=== PATIENT | female | born 1995 | race Caucasian/White ===

== ENCOUNTER 2016-10-09 16:32 | Emergency (ER) | payer OTHER ==
[~2016-10-09 16:32] MED LIST: AMOX875T PO; FLUT1SPR9 EACH NARE
[2016-10-09 16:35] VITALS: BP 125/78; PULSE 90; RESP 16; TEMP 97.8; O2SAT 97
--- NOTE | 2016-10-09 18:03 | PD ---
HPI Chief Complaint: ENT Complaint Time Seen by Provider: 17:56 Travel History International Travel<30 days: No Contact w/Intl Traveler<30days: No Traveled to known affect area: No History of Present Illness HPI 21-year-old female presents to the emergency department for evaluation of sore throat that started this morning. She reports a history of strep throat, last time being approximately 8 months ago. She denies any fevers or chills. No cough or congestion. She has no chronic medical problems and takes no prescribed medications. She denies any chance of . She has no other complaints. PFSH Past Medical History ADHD: No Anemia: Yes Autoimmune Disease: No Anxiety: No Depression: Yes Heart Rhythm Problems: Yes Cancer: No Cardiovascular Problems: No Chest Pain: Yes Developmental Delay: No Diabetes: No Diminished Hearing: No Gastrointestinal Disorders: Yes (occassional constipation) Genitourinary: No Neurologic: No Psychiatric: No Reproductive: No Respiratory: Yes (ASTHMA) Immunizations Current: Yes Migraines: Yes Seizures: No Thyroid Disease: No Ulcer: No PNEUMOCCOCAL Vaccine (Year): 2 ?: Not Past Surgical History Other Surgery: No Social History Alcohol Use: No Tobacco Use: No Substance Use: No Allergies-Medications (Allergen,Severity, Reaction): Coded Allergies: Peanut Oil (Verified Allergy, Severe, Swelling, 10/09/16) Reported Meds & Prescriptions Reported Meds & Active Scripts Active No Active Prescriptions or Reported Medications Review of Systems Except as stated in HPI: all other systems reviewed are Neg Physical Exam Narrative GENERAL: Well-developed well-nourished female patient, Ambulatory. Afebrile. SKIN: Warm and dry. HEAD: Normocephalic. Atraumatic. ENT: Mucosa pink and moist. Bilateral tonsils are 2+ with erythema, but no exudates. No uvular edema. No uvular, palatal, or tonsillar deviation. Airway patent. Nasal turbinates appear normal without nasal blood, purulent drainage or septal hematoma. Bilateral tympanic membranes are clear without erythema or perforation. EYES: No scleral icterus. No injection or drainage. NECK: Supple, trachea midline. No JVD or lymphadenopathy. CARDIOVASCULAR: Regular rate and rhythm without murmurs, gallops, or rubs. RESPIRATORY: Breath sounds equal bilaterally. No accessory muscle use. Lungs sounds are clear to auscultation. GASTROINTESTINAL: Abdomen soft, non-tender, nondistended. MUSCULOSKELETAL: No cyanosis, or edema. BACK: Nontender without obvious deformity. No CVA tenderness. Data Data Last Documented VS Vital Signs Date Time Temp Pulse Resp B/P Pulse Ox O2 Delivery O2 Flow Rate FiO2 10/09/16 16:35 97.8 90 16 125/78 97 Room Air Orders Group A Rapid Strep Screen (10/09/16 17:55) Strep Culture (Group A) (10/09/16 18:10) MDM Medical Decision Making Medical Screen Exam Complete: Yes Emergency Medical Condition: Yes Medical Record Reviewed: Yes Differential Diagnosis strep pharyngitis versus viral pharyngitis versus URI Narrative Course 21-year-old female presents to the emergency department for evaluation of sore throat that started today. Strep swab is ordered and pending. Strep swab is negative. Physical exam is consistent with viral pharyngitis. She is instructed to do warm saltwater gargles, Tylenol/Motrin [id number] as needed. She is to follow-up with her primary care physician return for any acute worsening of symptoms. Patient verbalizes agreement and understanding. Diagnosis Primary Impression: Viral pharyngitis Referrals: Primary Care Physician call for appointment Patient Instructions: General Instructions, Pharyngitis (ED) Additional Instructions: Warm salt water gargles. Tylenol/ibuprofen for pain. Follow-up with your primary care physician. Return to the emergency department for any acute worsening of symptoms. Med/Other Pt SpecificInfo: No Change to Meds Scripts No Active Prescriptions or Reported Meds Disposition: 01 DISCHARGE HOME Condition: Stable MarvinGala Oct 09, 2016 18:02
== END 2016-10-09 19:21 | disposition home or self-care (01) ==
LOC: NEPB 16:32
DX: J02.9 Acute pharyngitis, unspecified (principal)
CPT/HCPCS: 87081; 87880; 99283

== ENCOUNTER 2016-12-08 18:11 | Emergency (ER) | payer OTHER ==
[2016-12-08 18:25] VITALS: BP 144/64; PULSE 88; RESP 18; TEMP 98.9; O2SAT 100
--- NOTE | 2016-12-08 19:39 | PD ---
HPI Chief Complaint: Psychiatric Symptoms Time Seen by Provider: 19:35 Travel History International Travel<30 days: No Contact w/Intl Traveler<30days: No Traveled to known affect area: No History of Present Illness HPI Patient is a 21-year-old female brought into the emergency department for a psychiatric evaluation under Hernandez act for making suicidal ideations. Patient states that she was in an argument with her boyfriend when she began to pound her right fist on the steering wheel. A air support control officer asked her if she felt suicidal and she stated that she did. Patient states that she has a history of emotional outbursts. She denies any formal diagnosis of mental health issues. She does report a previous suicide attempt at age 17 when she overdosed on unknown pills. Her last menstrual cycle was 2 weeks ago. She does report pain in the lateral aspect of her right hand, she states the pain is a 4 out of 10. She denies any other significant past medical history, tobacco use, illicit drug use. She does endorse occasional alcohol intake. PFSH Past Medical History ADHD: No Anemia: Yes Asthma: Yes Autoimmune Disease: No Anxiety: No Depression: Yes Heart Rhythm Problems: Yes Cancer: No Cardiovascular Problems: No Chest Pain: Yes Developmental Delay: No Diabetes: No Diminished Hearing: No Genitourinary: No Neurologic: No Psychiatric: No Reproductive: No Immunizations Current: Yes Migraines: Yes Seizures: No Thyroid Disease: No Ulcer: No PNEUMOCCOCAL Vaccine (Year): 2 ?: Not LMP: 11/23/16 Past Surgical History Surgical History: No Previous Surgery Other Surgery: No Social History Alcohol Use: Yes (occasional) Tobacco Use: No Substance Use: No Allergies-Medications (Allergen,Severity, Reaction): Coded Allergies: Peanut Oil (Verified Allergy, Severe, Swelling, 10/09/16) Reported Meds & Prescriptions Reported Meds & Active Scripts Active Cephalexin 500 Mg Cap 500 Mg PO Q8H Review of Systems Except as stated in HPI: all other systems reviewed are Neg Musculoskeletal: Positive: Pain Psychiatric: Positive: Suicidal Ideations, Mood Disorder Physical Exam Narrative GENERAL: Well-developed, well-nourished, alert female. Resting comfortably in no acute distress. SKIN: Focused skin assessment warm/dry. HEAD: Atraumatic. Normocephalic. EYES: Pupils equal and round. No scleral icterus. No injection or drainage. ENT: No nasal bleeding or discharge. Mucous membranes pink and moist. NECK: Trachea midline. No JVD. CARDIOVASCULAR: Regular rate and rhythm. No murmur appreciated. RESPIRATORY: No accessory muscle use. Clear to auscultation. Breath sounds equal bilaterally. GASTROINTESTINAL: Abdomen soft, non-tender, nondistended. Hepatic and splenic margins not palpable. MUSCULOSKELETAL: No obvious deformities. No clubbing. No cyanosis. Mild edema to the lateral aspect of the right hand along the fifth MCP. Positive radial pulse, brisk and less than 3 second capillary refill. Full range of motion all fingers on the right hand. NEUROLOGICAL: Awake and alert. No obvious cranial nerve deficits. Motor grossly within normal limits. Normal speech. PSYCHIATRIC: Appropriate mood and affect; insight and judgment normal. Data Data Last Documented VS Vital Signs Date Time Temp Pulse Resp B/P Pulse Ox O2 Delivery O2 Flow Rate FiO2 12/09/16 06:18 98.5 67 17 118/52 98 Room Air Orders Complete Blood Count With Diff (12/08/16 18:53) Comprehensive Metabolic Panel (12/08/16 18:53) Urinalysis - C+S If Indicated (12/08/16 18:53) Psych Screen (12/08/16 18:53) Drug Screen, Random Urine (12/08/16 18:53) Alcohol (Ethanol) (12/08/16 18:53) Salicylates (Aspirin) (12/08/16 18:53) Tylenol (Acetaminophen) (12/08/16 18:53) Hand, Complete ([id number]) (12/08/16 ) Urine Culture (12/08/16 22:05) Cephalexin (Keflex) (12/08/16 22:45) Hydroxyzine Pamoate (Vistaril) (12/08/16 22:45) Diet Regular Basic (12/09/16 Breakfast) Labs Laboratory Tests Test 12/08/16 12/08/16 21:46 22:05 White Blood Count 7.7 TH/MM3 Red Blood Count 4.75 MIL/MM3 Hemoglobin 9.0 GM/DL Hematocrit 30.1 % Mean Corpuscular Volume 63.3 FL Mean Corpuscular Hemoglobin 19.0 PG Mean Corpuscular Hemoglobin 30.0 % Concent Red Cell Distribution Width 18.8 % Platelet Count 271 TH/MM3 Mean Platelet Volume 8.9 FL Neutrophils (%) (Auto) 55.4 % Lymphocytes (%) (Auto) 38.1 % Monocytes (%) (Auto) 5.6 % Eosinophils (%) (Auto) 0.5 % Basophils (%) (Auto) 0.4 % Neutrophils # (Auto) 4.3 TH/MM3 Lymphocytes # (Auto) 2.9 TH/MM3 Monocytes # (Auto) 0.4 TH/MM3 Eosinophils # (Auto) 0.0 TH/MM3 Basophils # (Auto) 0.0 TH/MM3 CBC Comment DIFF FINAL Differential Comment Sodium Level 141 MEQ/L Potassium Level 4.3 MEQ/L Chloride Level 106 MEQ/L Carbon Dioxide Level 27.1 MEQ/L Anion Gap 8 MEQ/L Blood Urea Nitrogen 12 MG/DL Creatinine 0.73 MG/DL Estimat Glomerular Filtration 102 ML/MIN Rate Random Glucose 96 MG/DL Calcium Level 9.2 MG/DL Total Bilirubin 0.3 MG/DL Aspartate Amino Transf 23 U/L (AST/SGOT) Alanine Aminotransferase 15 U/L (ALT/SGPT) Alkaline Phosphatase 57 U/L Total Protein 8.2 GM/DL Albumin 4.1 GM/DL Salicylates Level LESS THAN 1.7 MG/DL Acetaminophen Level LESS THAN 2.0 MCG/ML Ethyl Alcohol Level LESS THAN 3 MG/DL Urine Color YELLOW Urine Turbidity HAZY Urine pH 7.0 Urine Specific [place] 1.019 Urine Protein NEG mg/dL Urine Glucose (UA) NEG mg/dL Urine Ketones NEG mg/dL Urine Occult Blood NEG Urine Nitrite NEG Urine Bilirubin NEG Urine Urobilinogen LESS THAN 2.0 MG/DL Urine Leukocyte Esterase SMALL Urine RBC LESS THAN 1 /hpf Urine WBC 12 /hpf Urine Squamous Epithelial 1 /hpf Cells Urine Bacteria MANY /hpf Urine Mucus FEW /lpf Microscopic Urinalysis Comment CULTURE INDICATED Urine Opiates Screen NEG Urine Barbiturates Screen NEG Urine Amphetamines Screen NEG Urine Benzodiazepines Screen NEG Urine Cocaine Screen NEG Urine Cannabinoids Screen POS MDM Medical Decision Making Medical Screen Exam Complete: Yes Emergency Medical Condition: Yes Interpretation(s) Vital Signs Date Time Temp Pulse Resp B/P Pulse Ox O2 Delivery O2 Flow Rate FiO2 12/08/16 18:25 98.9 88 18 144/64 100 Differential Diagnosis Suicidal ideations or mood disorder versus substance abuse versus fracture versus sprain versus other Narrative Course Patient is a 21-year-old female presenting to emergency for under Hernandez act for suicidal ideations after she got into an argument with her boyfriend. Patient does admit to a previous suicide attempt at age 17. Labs ordered and pending. X-ray of the right hand ordered to rule out acute fracture. X-ray right hand is negative for acute abnormality. CBC with a mild anemia with a hemoglobin of 9 and 30.1 consistent with prior Urinalysis shows 12 white blood cells, bacteria, mucus, reflex culture pending. Patient will be treated with Keflex, first dose will be given now. Salicylate level is less than 1.7 +THC Chemistry is unremarkable. Pt is medically cleared for psych eval. Rx written for Keflex. Diagnosis Primary Impression: Medical clearance for psychiatric admission Additional Impression: Urinary tract infection Qualified Code: N39.0 - Urinary tract infection without hematuria, site unspecified Med/Other Pt SpecificInfo: Prescription(s) given Scripts Cephalexin 500 Mg [id number] Mg PO Q8H #30 CAP Ref 0 Prov:Chloe Blancas 12/08/16 Condition: Stable Chloe Blancas December 08, 2016 19:39
--- NOTE | 2016-12-08 20:15 | RADRPT ---
EXAM DATE/TIME: 12/08/2016 19:51 [facility] COMPARISON: No previous studies available for comparison. INDICATIONS : Right hand fifth metacarpal pain. MEDICAL HISTORY : None. SURGICAL HISTORY : None. ENCOUNTER: Initial ACUITY: 1 day PAIN SCORE: 5/10 LOCATION: Right hand. FINDINGS: Three view examination of the right hand demonstrates no soft tissue swelling, dislocation, or fractu re. The carpal bones appear intact. The interphalangeal and metacarpophalangeal joints are intact. Bony mineralization is normal. Nutrient foramen seen laterally mid shaft of the fifth metacarpal. CONCLUSION: Intact right hand. Sharif Kulkarni MD on December 08, 2016 at 20:13 Board Certified Radiologist. This report was verified electronically.
[2016-12-08 22:24] LABS: AUTOMATED NEUTROPHIL # 4.3 TH/MM3 (1.8-7.7); BASOPHIL % 0.4 % (0.0-2.0); EOSINOPHIL % 0.5 % (0.0-4.0); HEMATOCRIT 30.1 % (35.0-46.0); HEMO FLAGS DIFF FINAL; LYMPH % 38.1 % (9.0-44.0); LYMPHOCYTE # 2.9 TH/MM3 (1.0-4.8); MEAN CELL VOLUME 63.3 FL (80.0-100.0); MONO % 5.6 % (0.0-8.0); NEUT % 55.4 % (16.0-70.0); PLATELET COUNT 271 TH/MM3 (150-450); RED BLOOD COUNT 4.75 MIL/MM3 (4.00-5.30); RED CELL DISTRIBUTION WIDTH 18.8 % (11.6-17.2); WHITE BLOOD COUNT 7.7 TH/MM3 (4.0-11.0)
[2016-12-08 22:34] LABS: BACTERIA, URINE MANY /hpf; BLOOD, URINE NEG (NEG); COMMENT (UR) CULTURE INDICATED; CULTURE IF INDICATED CULTURE INDICATED; GLUCOSE,URINE NEG (NEG); KETONE, URINE NEG (NEG); MUCUS URINE FEW /lpf (OCC); NITRITE,URINE NEG (NEG); SQUAMOUS EPITHELIAL CELL URINE 1 /hpf (0-5); URINE COLOR YELLOW (YELLW/STRAW)
[2016-12-08 22:35] LABS: AMPHETAMINE, URINE NEG (NEG); BARBITURATES, URINE NEG (NEG); COCAINE, URINE NEG (NEG)
[2016-12-08 22:40] LABS: ALT (GPT) 15 U/L (9-42); ANION GAP 8 MEQ/L (5-15); AST (GOT) 23 U/L (16-38); BICARBONATE 27.1 MEQ/L (21.0-32.0); BLOOD UREA NITROGEN 12 MG/DL (7-18); CHLORIDE 106 MEQ/L (98-107); GLOMERULAR FILTRATION RATE 102 ML/MIN (>89); POTASSIUM 4.3 MEQ/L (3.5-5.1); SODIUM (NA) 141 MEQ/L (136-145)
[2016-12-08 22:42] LABS: ALKALINE PHOSPHATASE 57 U/L (45-117); TOTAL BILIRUBIN ADULT 0.3 MG/DL (0.2-1.0)
[2016-12-08] MEDS ORDERED: CEPH500C PO ×2 (22:43→22:44)
[2016-12-08] MEDS ORDERED: CEPHALEXIN MONOHYDRATE 500 MG CAP PO ONE (22:45)
[2016-12-08 22:46] VITALS: BP 128/58; PULSE 87; RESP 16; O2SAT 99
[2016-12-08 22:58] LABS: ACETAMINOPHEN LESS THAN 2.0 MCG/ML (10.0-30.0)
[2016-12-09 02:23] VITALS: BP 100/42; PULSE 78; RESP 18; O2SAT 99
[2016-12-09 06:18] VITALS: BP 118/52; PULSE 67; RESP 17; TEMP 98.5; O2SAT 98
--- NOTE | 2016-12-09 09:43 | PD ---
History of Present Illness Chief Complaint: Psychiatric Symptoms Time Seen by Provider: 09:25 Travel History International Travel<30 Days: No Contact w/Intl Traveler<30days: No Known affected area: No Legal Status Legal Status: Hernandez Act Hernandez Act Signed By: Rosanne Hernandez Act Comment: MAKING SUICIDAL STATEMENTS History of Present Illness: History of Present Illness HPI Patient is a 21-year-old female with no previous psychiatric history brought into the emergency department for a psychiatric evaluation under Hernandez act for making suicidal ideations. ED documentation is reviewed and included in this report; " Patient states that she was in an argument with her boyfriend when she began to pound her right fist on the steering wheel. A superintendent police asked her if she felt suicidal and she stated that she did. Patient states that she has a history of emotional outbursts." Current toxicology is positive for cannabinoids. No previous contact with [facility] psychiatry dept. Patient is seen. report obtained from nurses. Had been agitated earlier in the day as she wants to be discharged. Patient is now calm, engaging and cooperative. Speech is clear, logical. No psychosis and no daniela. No symptom of depression. She denies any suicidal or homicidal ideation, intent or plan. She states that she was involved in an argument with her boyfriend and that she did in fact bang on the steering wheel of her car but she denies that she stated she was thinking of harming herself and that she was able to calm down on her own. She did not make any attempt at harming herself . She does report that at age 17 years she made a suicidal gesture by overdosing on some pills. PFSH Past Medical History ADHD: No Anemia: Yes Asthma: Yes Autoimmune Disease: No Anxiety: No Depression: Yes Heart Rhythm Problems: Yes Cancer: No Cardiovascular Problems: No Chest Pain: Yes Developmental Delay: No Diabetes: No Diminished Hearing: No Genitourinary: No Neurologic: No Psychiatric: No Reproductive: No Immunizations Current: Yes Migraines: Yes Seizures: No Thyroid Disease: No Ulcer: No PNEUMOCCOCAL Vaccine (Year): 2 ?: Not LMP: 11/23/16 Past Surgical History Surgical History: No Previous Surgery Other Surgery: No Psychiatric History Psychiatric History Hx Psychiatric Treatment: NO TREATMENT History of Inpatient Treatment: No Guns or firearms in home: No Social History Single female. Lives w her grandparents. Works in retail. Hx Alcohol Use: Yes (occasional) Hx Tobacco Use: No Hx Substance Use: Yes Substance Use Type: Marijuana Other Substances Used: SMOKES 1 GRAM MARIJUANA PER MONTH Hx of Substance Use Treatment: No Allergies-Medications (Allergen,Severity, Reaction): Coded Allergies: Peanut Oil (Verified Allergy, Severe, Swelling, 10/09/16) Reported Meds & Prescriptions Reported Meds & Active Scripts Active Cephalexin 500 Mg Cap 500 Mg PO Q8H Review of Systems Except as stated in HPI: all other systems reviewed are Neg Psychiatric: DENIES: Anxiety, Confusion, Mood changes, Depression, Hallucinations, Agitation, Suicidal Ideation, Homicidal Ideation, Delusions Exam Alert: Yes Francis: Person (ox4) Mood: Calm Affect: Appropriate Speech: Clear, Logical Eye Contact: Normal Memory Intact: Comment (no impairmetn) Hallucinations: Other (negative) Suicidal: Ideation (deneis any) Homicidal: Ideation (deneis any) Insight/Judgement Fair. Not impaired. MDM Medical Decision Making Medical Record Reviewed: Yes Assessment/Plan 21 year old female with no previous psychiatric history who in context of an argument with her boyfriend allegedly made suicidal statements. Patient at this time does not meet BA criteria and presents no acute psychiatric symptomatology. Does not meet BA criteria. Will be lifted. Discharge home. Orders Complete Blood Count With Diff (12/08/16 18:53) Comprehensive Metabolic Panel (12/08/16 18:53) Urinalysis - C+S If Indicated (12/08/16 18:53) Psych Screen (12/08/16 18:53) Drug Screen, Random Urine (12/08/16 18:53) Alcohol (Ethanol) (12/08/16 18:53) Salicylates (Aspirin) (12/08/16 18:53) Tylenol (Acetaminophen) (12/08/16 18:53) Hand, Complete (Ils7lor) (12/08/16 ) Urine Culture (12/08/16 22:05) Cephalexin (Keflex) (12/08/16 22:45) Hydroxyzine Pamoate (Vistaril) (12/08/16 22:45) Diet Regular Basic (12/09/16 Breakfast) Results Vital Signs Date Time Temp Pulse Resp B/P Pulse Ox O2 Delivery O2 Flow Rate FiO2 12/09/16 06:18 98.5 67 17 118/52 98 Room Air 12/09/16 02:23 78 18 100/42 99 Room Air 12/08/16 22:46 87 16 128/58 99 Room Air 12/08/16 18:25 98.9 88 18 144/64 100 Laboratory Tests Test 12/08/16 12/08/16 21:46 22:05 White Blood Count 7.7 Red Blood Count 4.75 Hemoglobin 9.0 Hematocrit 30.1 Mean Corpuscular Volume 63.3 Mean Corpuscular Hemoglobin 19.0 Mean Corpuscular Hemoglobin 30.0 Concent Red Cell Distribution Width 18.8 Platelet Count 271 Mean Platelet Volume 8.9 Neutrophils (%) (Auto) 55.4 Lymphocytes (%) (Auto) 38.1 Monocytes (%) (Auto) 5.6 Eosinophils (%) (Auto) 0.5 Basophils (%) (Auto) 0.4 Neutrophils # (Auto) 4.3 Lymphocytes # (Auto) 2.9 Monocytes # (Auto) 0.4 Eosinophils # (Auto) 0.0 Basophils # (Auto) 0.0 CBC Comment DIFF FINAL Differential Comment Sodium Level 141 Potassium Level 4.3 Chloride Level 106 Carbon Dioxide Level 27.1 Anion Gap 8 Blood Urea Nitrogen 12 Creatinine 0.73 Estimat Glomerular Filtration 102 Rate Random Glucose 96 Calcium Level 9.2 Total Bilirubin 0.3 Aspartate Amino Transf 23 (AST/SGOT) Alanine Aminotransferase 15 (ALT/SGPT) Alkaline Phosphatase 57 Total Protein 8.2 Albumin 4.1 Salicylates Level LESS THAN 1.7 Acetaminophen Level LESS THAN 2.0 Ethyl Alcohol Level LESS THAN 3 Urine Color YELLOW Urine Turbidity HAZY Urine pH 7.0 Urine Specific [place] 1.019 Urine Protein NEG Urine Glucose (UA) NEG Urine Ketones NEG Urine Occult Blood NEG Urine Nitrite NEG Urine Bilirubin NEG Urine Urobilinogen LESS THAN 2.0 Urine Leukocyte Esterase SMALL Urine RBC LESS THAN 1 Urine WBC 12 Urine Squamous Epithelial 1 Cells Urine Bacteria MANY Urine Mucus FEW Microscopic Urinalysis Comment CULTURE INDICATED Urine Opiates Screen NEG Urine Barbiturates Screen NEG Urine Amphetamines Screen NEG Urine Benzodiazepines Screen NEG Urine Cocaine Screen NEG Urine Cannabinoids Screen POS Date/Time Procedure Status Source Growth 12/08/16 22:05 Urine Culture Received Urine Random Urine Pending Diagnosis Primary Impression: Urinary tract infection Additional Impression: Adjustment disorder with mixed disturbance of emotions and conduct Psychiatrically Cleared: Yes Departure Forms: Tests/Procedures Patient Instructions: General Instructions, Pharyngitis (ED), Mood Disorders ( ED), Medical Clearance for Psychiatric Care (ED) Additional Instructions: Discharge Home Dx. Adjustment Disorder with mixed disturbance Take Cephalexin as prescribed Follow-up with PMD Resource packet provided, please follow-up with a counsellor of choice Return to ED for any further problems Med/ Other Pt Specific Info: No Meds Exist/No RX given Prescriptions Cephalexin 500 Mg [id number] Mg PO Q8H #30 CAP Ref 0 Prov:Chloe Blancas 12/08/16 Disposition: 01 DISCHARGE HOME Condition: Stable Problem Qualifiers Primary Impression: Urinary tract infection Qualified Code: N39.0 - Urinary tract infection without hematuria, site unspecified Mis Marquez December 09, 2016 09:43
[2016-12-09 09:55] VITALS: BP 118/52; TEMP 98.5
== END 2016-12-09 09:52 | disposition home or self-care (01) ==
LOC: NEPJ 18:11
DX: N39.0 Urinary tract infection, site not specified (principal); F43.25 Adjustment disorder with mixed disturbance of emotions and conduct; B95.1 Streptococcus, group B, as the cause of diseases classified elsewhere
CPT/HCPCS: 73130; 80053; 80307; 81001; 85025; 86403; 87086; 99284

== ENCOUNTER 2017-06-02 17:52 | Emergency (ER) | payer OTHER ==
[~2017-06-02] VITALS: Ht 162.6 cm; Wt 60.0 kg
[~2017-06-02 17:52] MED LIST changes: -AMOX875T PO; +CEPH500C PO; -FLUT1SPR9 EACH NARE
[2017-06-02 17:54] VITALS: BP 134/78; PULSE 84; RESP 13; TEMP 98.6; O2SAT 100
== END 2017-06-02 19:23 | disposition left against medical advice (07) ==
LOC: NED 17:52
DX: Z03.89 Encounter for observation for other suspected diseases and conditions ruled out (principal)
CPT/HCPCS: 99281